=== PATIENT | male | born 1945 | race Caucasian/White ===

== ENCOUNTER 2016-12-25 15:47 | Emergency (ER) | payer MEDICARE, BC ==
[~2016-12-25] VITALS: Ht 167.6 cm; Wt 63.6 kg
[2016-12-25 15:50] VITALS: BP 151/79; TEMP 98.2
[2016-12-25] MEDS ORDERED: PRIL40 PO (16:20)
[2016-12-25] MEDS ORDERED: NORVASC 10MG10 MG PO (16:21)
[2016-12-25] MEDS ORDERED: TRAVATAN Z 2.52.5 ML OS (16:22)
[2016-12-25] MEDS ORDERED: TIMOLOL MALEATE5 M1 OP (16:22)
[2016-12-25] MEDS ORDERED: AVODART 0.5MG0.5 MG PO (16:23)
[2016-12-25] MEDS ORDERED: CEPHALEXIN500 M1 PO (16:46)
[2016-12-25 17:07] VITALS: PULSE 77
== END 2016-12-25 17:08 | disposition home or self-care (01) ==
LOC: COL.ER 15:47
DX: S61.215A Laceration without foreign body of left ring finger without damage to nail, initial encounter (principal); I10 Essential (primary) hypertension; F17.210 Nicotine dependence, cigarettes, uncomplicated; W22.8XXA Striking against or struck by other objects, initial encounter; Y92.009 Unspecified place in unspecified non-institutional (private) residence as the place of occurrence of the external cause